=== PATIENT | male | born 1990 | race Caucasian/White ===

== ENCOUNTER 2018-08-08 19:55 | Emergency (ER) | payer OTHER ==
[2018-08-08] MEDS ORDERED: Bupivacaine 0.5% 10 ML VIAL ONE (20:09)
[2018-08-08] MEDS ORDERED: Cephalexin 500 MG CAP ONE (20:25)
== END 2018-08-08 21:10 | disposition home or self-care (01) ==
LOC: BURERS 19:55
DX: S61.210A Laceration without foreign body of right index finger without damage to nail, initial encounter (principal); W22.8XXA Striking against or struck by other objects, initial encounter
CPT/HCPCS: 99282; J3490